=== PATIENT | female | born 1990 | race Caucasian/White ===

== ENCOUNTER 2020-09-13 15:03 | Outpatient (CLI) | payer OTHER, SELFPAY | END 2020-09-13 15:04 | disposition home or self-care (01) | LOC: ANHCOVIDVC 15:03 | PROVIDERS: PCP Internal Medicine | DX: Z23 Encounter for immunization (principal) | CPT/HCPCS: 0001A; 91300 ==

== ENCOUNTER 2020-10-04 14:58 | Outpatient (CLI) | payer OTHER, SELFPAY | END 2020-10-04 14:59 | disposition home or self-care (01) | LOC: ANHCOVIDVC 14:58 | PROVIDERS: PCP Internal Medicine | DX: Z23 Encounter for immunization (principal) | CPT/HCPCS: 0002A; 91300 ==

== ENCOUNTER 2022-08-09 08:33 | Outpatient (CLI) | payer OTHER, SELFPAY ==
[2022-08-09 09:38] LABS: Basophils Percent Auto 0.5 % (0.2-1.2); Eosinophils Absolute Auto 0.1 K/mm3 (0-0.3); Eosinophils Percent Auto 1.4 % (0-4.4); Hematocrit 36.9 % (37.0-47.0); Immature Granulocyte Absolute 0.02 K/mm3 (0.00-0.031); Immature Granulocyte Percent A 0.3 % (0-0.5); Lymphocytes Absolute Auto 1.52 K/mm3 (0.9-3.2); Lymphocytes Percent Auto 23.7 % (18.3-44.2); Mean Corpuscular HGB Conc 35.2 g/dl (32-36); Mean Corpuscular Volume 90.9 fl (80-100); Mean Platelet Volume 8.8 fl (7.4-10.4); Monocytes Absolute Auto 0.5 K/mm3 (0.1-0.6); Monocytes Percent Auto 7.3 % (2.6-8.5); Neutrophils Absolute Auto 4.3 K/mm3 (1.3-6.7); Neutrophils Percent Auto 66.8 % (45.5-73.1); Platelet Count Result 277 k/mm3 (150-375); Red Blood Count 4.06 M/mm3 (4.2-5.4); White Blood Count 6.4 K/mm3 (4.5-10.0)
[2022-08-09 10:23] LABS: Hepatitis B Surface Antigen Negative (Negative); Rubella IgG Antibody 18.7 IU/ML
[2022-08-09 10:29] LABS: HIV 1/2 Ab P24 Ag Result Negative (Negative)
[2022-08-12 05:56] LABS: Rapid Plasma Reagin Non-Reactive (NonReactive)
[2022-08-13 11:32] LABS: Varicella IgG Antibody >4000.00 Index (>=165.00)
[2022-08-14 16:03] LABS: CMV IgG Antibody <0.60 U/mL (<0.60)
== END 2022-08-09 08:34 | disposition home or self-care (01) ==
LOC: ANHLAB 08:36
PROVIDERS: PCP Internal Medicine; Visit Provider Obstetrics & Gynecology
DX: N94.89 Other specified conditions associated with female genital organs and menstrual cycle (principal)
CPT/HCPCS: 36415; 85025; 86592; 86644; 86703; 86747; 86762; 86787; 86850; 86880; 86900; 86901; 86902; 87086; 87340; G0432

== ENCOUNTER 2022-12-04 06:59 | Outpatient (RCR) | payer OTHER, SELFPAY ==
[2022-12-04 08:50] LABS: Basophils Percent Auto 0.3 % (0.2-1.2); Eosinophils Absolute Auto 0.1 K/mm3 (0-0.3); Eosinophils Percent Auto 1.4 % (0-4.4); Hematocrit 37.8 % (37.0-47.0); Hemoglobin 12.8 g/dL (12.0-15.0); Immature Granulocyte Absolute 0.05 K/mm3 (0.00-0.031); Immature Granulocyte Percent A 0.7 % (0-0.5); Lymphocytes Absolute Auto 1.28 K/mm3 (0.9-3.2); Lymphocytes Percent Auto 17.3 % (18.3-44.2); Mean Corpuscular HGB Conc 33.9 g/dl (32-36); Mean Corpuscular Hemoglobin 32.5 pg (26-34); Mean Corpuscular Volume 95.9 fl (80-100); Mean Platelet Volume 9.1 fl (7.4-10.4); Monocytes Absolute Auto 0.5 K/mm3 (0.1-0.6); Monocytes Percent Auto 6.8 % (2.6-8.5); Neutrophils Absolute Auto 5.4 K/mm3 (1.3-6.7); Neutrophils Percent Auto 73.5 % (45.5-73.1); Platelet Count Result 254 k/mm3 (150-375); Red Blood Count 3.94 M/mm3 (4.2-5.4); Red Cell Distribution Width 12.6 % (11.5-14.5); White Blood Count 7.4 K/mm3 (4.5-10.0)
[2022-12-04 09:00] LABS: Glucose 1 Hour PP 50gm Dose 91 mg/dL
[2022-12-04 09:40] LABS: HIV 1/2 Ab P24 Ag Result Negative (Negative)
[2022-12-04] MEDS: RHO(D) IMMUNE GLOBULIN 300 MCG/2 ML SYRINGE IM (16:47)
== END 2023-03-04 23:59 | disposition home or self-care (01) ==
LOC: ANHLAB 06:59
PROVIDERS: Visit Provider Obstetrics & Gynecology
DX: Z11.4 Encounter for screening for human immunodeficiency virus [HIV] (principal); Z29.13 Encounter for prophylactic Rho(D) immune globulin; O36.0190 Maternal care for anti-D [Rh] antibodies, unspecified trimester, not applicable or unspecified; Z3A.00 Weeks of gestation of pregnancy not specified
CPT/HCPCS: 36415; 82947; 85025; 85461; 86703; 86850; 86900; 86901; 90384; 96372; G0432; J2790

== ENCOUNTER 2022-12-30 09:15 | Outpatient (RCR) | payer OTHER, SELFPAY ==
[2022-12-30] VITALS (8 sets, daily range): BP systolic 99; BP diastolic 66; PULSE 69–89; O2SAT 97–99
== END 2023-02-24 12:46 | disposition home or self-care (01) ==
LOC: ANHOBOP 09:15
PROVIDERS: Visit Provider Obstetrics & Gynecology
DX: O36.8130 Decreased fetal movements, third trimester, not applicable or unspecified (principal); Z3A.31 31 weeks gestation of pregnancy
CPT/HCPCS: 59025

== ENCOUNTER 2023-02-18 01:13 | Inpatient (IN) | payer OTHER, SELFPAY ==
[2023-02-18] VITALS (65 sets, daily range): BP systolic 93–138; BP diastolic 50–102; PULSE 69–124; RESP 16; TEMP 36.4–37.3; O2SAT 96–100; BMI 27.3
--- NOTE | 2023-02-18 01:29 | LDADM ---
This patient, Cassie Price, was admitted to Labor/Delivery/Recovery 106 on 02/18/23 at 01:13. Plans for labor, pain management and were discussed with patient. Patient/family oriented to hospital policies and general routines including ID bracelet, bed and alarms, visiting hours, pain management, procedures, bathroom and other care routines, personal items, smoking policy, room service/diet and guest tray routines, security routines, and visiting hours. Patient/Family are encouraged to report perceived risks to care and to ask questions if they do not understand what they are told or what they should do. See OBIX for further documentation.
[2023-02-18] MEDS: fentaNYL CITRATE INJ (*CRX) 100 MCG/2 ML VIAL 50 MCG IV PUSH (01:54)
[2023-02-18 01:59] LABS: Basophils Percent Auto 0.3 % (0.2-1.2); Eosinophils Absolute Auto 0.1 K/mm3 (0-0.3); Eosinophils Percent Auto 1.2 % (0-4.4); Hematocrit 38.6 % (37.0-47.0); Hemoglobin 13.4 g/dL (12.0-15.0); Immature Granulocyte Absolute 0.07 K/mm3 (0.00-0.031); Immature Granulocyte Percent A 0.6 % (0-0.5); Lymphocytes Absolute Auto 2.38 K/mm3 (0.9-3.2); Mean Corpuscular HGB Conc 34.7 g/dl (32-36); Mean Corpuscular Hemoglobin 32.4 pg (26-34); Mean Corpuscular Volume 93.2 fl (80-100); Mean Platelet Volume 9.9 fl (7.4-10.4); Monocytes Percent Auto 8.7 % (2.6-8.5); Neutrophils Absolute Auto 8.2 K/mm3 (1.3-6.7); Neutrophils Percent Auto 69.2 % (45.5-73.1); Platelet Count Result 290 k/mm3 (150-375); Red Blood Count 4.14 M/mm3 (4.2-5.4); Red Cell Distribution Width 12.7 % (11.5-14.5); White Blood Count 11.9 K/mm3 (4.5-10.0)
[2023-02-18] MEDS: LACTATED RINGERS 1,000 ML 125 ML IV CONT ×3 (02:01→03:57)
--- NOTE | 2023-02-18 02:09 | WPDANESEPP ---
Anes - Eval Pre Procedure Procedure: Labor epidural Date/Time: 02/18/23 02:09 Surgeon: Lauro Preop Diagnosis: Abdominal pain with contractions Pre Op Diagnosis: Contractions Patient Data Age: 32 Gender: F Height: 1.75 m Weight: 84 kg Last Vital Signs Pulse 76 02/18/23 02:01 BP 127/75 02/18/23 02:01 O2 Del Method Room Air 02/18/23 01:29 Allergies Allergy/AdvReac Type Severity Reaction Status Date / Time No Known Allergies Allergy Verified 02/18/23 01:35 Home Medications Medication Instructions Recorded Confirmed Type prenat.vits,john,ajo-iixu-lgwfd 1 tablet PO DAILY 09/12/22 02/18/23 History Laboratory Tests 02/18/23 01:44 WBC 11.9 H K/mm3 (4.5-10.0) RBC 4.14 L M/mm3 (4.2-5.4) Hgb 13.4 g/dL (12.0-15.0) Hct 38.6 % (37.0-47.0) MCV 93.2 fl (80-100) MCH 32.4 pg (26-34) MCHC 34.7 g/dl (32-36) RDW 12.7 % (11.5-14.5) Plt Count 290 k/mm3 (150-375) MPV 9.9 fl (7.4-10.4) Immature Gran % (Auto) 0.6 H % (0-0.5) Neut % (Auto) 69.2 % (45.5-73.1) Lymph % (Auto) 20.0 % (18.3-44.2) [facility] % (Auto) 8.7 H % (2.6-8.5) Eos % (Auto) 1.2 % (0-4.4) Baso % (Auto) 0.3 % (0.2-1.2) Lymph # (Auto) 2.38 K/mm3 (0.9-3.2) [facility] # (Auto) 1.0 H K/mm3 (0.1-0.6) Eos # (Auto) 0.1 K/mm3 (0-0.3) Baso # (Auto) 0.0 K/mm3 (0.0-0.1) Abs Immat Gran (auto) 0.07 H K/mm3 (0.00-0.031) Absolute Neuts (auto) 8.2 H K/mm3 (1.3-6.7) Absolute Nucleated RBC 0.0 K/mm3 (0.0-0.012) Nucleated RBC % 0.0 % (0.0-0.2) RPR Pending : gestational age HCG: positive Patient hx anesthesia problems: none Family hx anesthesia problems: none Results Review: All pre-operative results and documents have been reviewed as part of the pre-operative evaluation. [facility] Past Medical History Medical History Abnormal Pap smear of cervix 06/04/17 ascus (+) hpv Anxiety Chlamydia (~2016) Encounter for IUD insertion 11/03/12 Mirena insertion 11/05/17 Mirena insertion Encounter for IUD removal 10/27/17 Mirena removal Encounter for IUD removal Femoral hernia of left side 02/26/11 lt superficial groin dissection, repair of acquired lt femoral hernia, transposition of satorius muscle Melanoma in situ stage IIIB--left buttock Suppression of menstruation Surgical History Surgical History History of colposcopy with cervical biopsy (06/27/17) History of gynecological procedure (~10/29/21) mirena iud removal History of melanoma excision 02/07/11 wide excision left buttock sentinel node dissection/biopsy Family History Family History Grandparent Hypertension maternal grandmother Osteoporosis maternal grandmother Alcohol abuse maternal grandmother Social History Social History Smoking status: Never smoker Alcohol intake: former Drinks per week: 2 Alcohol use details: social Substance use: never Substance use type: does not use Lack of Transportation: No Lack of Food: Never True Current Housing: I Have Housing Concerned About Future Housing: No Difficulty Paying Gas/Electric Bills: No Difficulty Paying for Meds: No Currently Unemployed: No Education: Bachelor's Degree Difficulty w/ Childcare or Family Care: No Living arrangements: other Additional living arrangements comments: Occupation/Education: occupation Additional occupation/education comments: Loan admin Gender identity (if verbalized by the patient): Female Sexual Orientation (if Verbalized by the Patient): Straight or Heterosexual Spiritual care concerns: No Exam Day of Procedure 02/18/23 02:09 Patient weight: overweight Hea
[2023-02-18] MEDS: OXYTOCIN 30 UNITS/NS 500 ML 30 UNITS/500 ML BAG 125 UNITS IV CONT (10:30)
--- NOTE | 2023-02-18 11:02 | WPDHPUPDATE1 ---
History and Physical Update Update Date/Time: 02/18/23 11:02 History and Physical has been reviewed, including an updated exam of the patient. There are NO changes in the patient's condition. Risks, benefits, and alternatives have been discussed and questions answered. Patient agrees to proceed with procedure.
--- NOTE | 2023-02-18 11:02 | WPDOBADMIT ---
Obstetrics - Admit Note Admission Note: record reviewed. No pertinent additions to the history and/or any subsequent changes in the physical findings that are not consistent with the expected course of the were found. Additions to the history and/or subsequent changes in the physical findings follow. None.
--- NOTE | 2023-02-18 11:02 | PM.OBPRVD ---
OB - Delivery Note Procedure Delivery monitor: External FHT and External Uterine Route of delivery: Laceration Description: Perineal - 2nd Degree and Vaginal Delivery repair: chromic Specimen: No Quantitative Blood Loss (ml): 500 Anesthesia type: Epidural Disposition: Floor Complications: None Narrative: patient prepped and draped in usual manner for this procedure. Maternal expulsive efforts readily delivered vertex over intact perineum. Rest of baby was delivered without difficulty, cord was clamped cut, and placenta delivered spontaneously. Uterus was well contracted with minimal bleeding. Second-degree laceration was noted with bilateral sulcus tears. Repair was undertaken by 1st repairing the tears into the sulcus area with 2-0 chromic in a running interlocking manner with hemostasis noted and good approximation of tissue. Once this was done bilaterally the vaginal tissue was then approximated again using 2-0 chromic in a running interlocking manner to the perineum, deep tissue was approximated, and subcuticular manner to approximate the perineal tissue. Immediate postop condition mother baby with excellent, and there was no significant bleeding from the well contracted uterus. [place] Baby Weeks of gestation at delivery: 39 Infant gender: Female presentation: vertex position: Right Occiput Anterior Placenta delivery description: Spontaneous Cord Vessel Description: 3 Vessels [facility] Delivery Billing Delivery Delivery: Delivery Charge
[2023-02-18 13:48] LABS: Rapid Plasma Reagin Non-Reactive (NonReactive)
--- NOTE | 2023-02-18 14:40 | PC.NURSE ---
Patient transferred to post room #282 via 1440. Support person present. Oriented to unit, room, information board, rooming in, admission packet and security measures. Patient verbalizes understanding.
[2023-02-18] MEDS: IBUPROFEN 600 MG TABLET PO (15:07)
[2023-02-19 04:15] VITALS: BP 100/63; PULSE 80; RESP 18; TEMP 37.2; O2SAT 99
[2023-02-19 05:34] LABS: Hematocrit 30.5 % (37.0-47.0); Hemoglobin 10.4 g/dL (12.0-15.0)
--- NOTE | 2023-02-19 07:10 | PC.NURSE ---
PT introductions made and plan of care discussed per post , pain management, breast feeding, daily care activities. PT and fob both recipients of such instructions and no barriers to learning identified at this time. PT received such instructions per one to one discussion, mom baby care guide and demonstrations this shift. PT verbalized understanding of such care.
[2023-02-19 08:15] VITALS: BP 107/71; PULSE 81; RESP 16; TEMP 37.7; O2SAT 98
[2023-02-19] MEDS: DOCUSATE SODIUM 100 MG CAPSULE PO ×2 (08:57→17:01)
[2023-02-19] MEDS: MULTIVIT/MIN/PREN/FOL AC/IRON TABLET 1 TAB PO (08:57)
[2023-02-19] MEDS: IBUPROFEN 600 MG TABLET PO ×3 (08:57→23:55)
[2023-02-19] MEDS: LANOLIN (LANSINOH) 7.5 GM CREAM 1 APPLIC TOPICAL (08:59)
[2023-02-19 09:00] VITALS: PULSE 81; RESP 16; O2SAT 98
[2023-02-19] MEDS: ACETAMINOPHEN 325 MG TABLET 650 MG PO ×3 (11:39→23:55)
--- NOTE | 2023-02-19 11:59 | WPDANLDPN2 ---
Anes-Prog Note L&D Date/Time: 02/19/23 11:59 Neuraxial method: epidural Epidural/Spinal procedure site: clean & non-tender Neuro status: Neuro function grossly intact. Cardiovascular status: normal Respiratory status: normal Airway patency: baseline Mental status: baseline Post-Op hydration status: normal Vital Signs: Last Vital Signs Temp 99.8 F H 02/19/23 08:15 Pulse 81 02/19/23 09:00 Resp 16 02/19/23 09:00 BP 107/71 02/19/23 08:15 Pulse Ox 98 02/19/23 09:00 O2 Del Method Room Air 02/19/23 09:00 Pain score (VAS): 0 I/O: Intake & Output 02/18/23 02/19/23 02/19/23 23:59 07:59 15:59 Intake Total 480 240 Balance 480 240 Post-procedural complaints: none Patient feedback: Patient satisfied with anesthetic care.
--- NOTE | 2023-02-19 14:22 | PC.NURSE ---
[id number] Purposefully rounded to assess for needs. Mother verbalizes she is able to independently latch with appropriate positioning/alignment. She denies any nipple discomfort and is responsively . Infant is currently meeting outcomes for weight, output, jaundice and feeding frequencies of 8-12 times in 24 hours. Mother declines any additional assistance/education at this time. Mother is encouraged to call for assistance if her infant doesn?t latch or there is discomfort with latching. Mother voiced understanding of information shared and the mom reminded of the mom/baby guide for an additional resource. Reported to the primary RN.
[2023-02-19 20:40] VITALS: BP 105/69; PULSE 73; RESP 20; TEMP 37.7; O2SAT 100
--- NOTE | 2023-02-20 07:25 | PM.OBDSVD ---
DS: Admitting Diagnosis Discharge Date 02/20/2023 Admitting Diagnosis DS: Discharge Diagnosis Discharge Diagnosis (1) , delivered: Code(s): O80 - Encounter for full-term uncomplicated delivery Status: Acute OB - DS: Summary OB Procedures : None OB Procedures Intrapartum: Spontaneous Vag Delivery OB Procedures: : None Time Spent with Patient Time attestation: Total time spent providing and/or coordinating discharge services: Discharge Plan Discharge Discharging Clinician: Gerard Restrepo Patient Disposition: Home, Self-Care Activity: as tolerated Diet: as tolerated Discharge Instructions: Education: Mom and Baby Guide Given to: Mother Follow-Up: Call your delivering provider's office for an appointment to be seen in: 4 Weeks [facility]. Appointment Date/Time: February 21, 2023 at 10:00 am What to expect at your follow-up visit: Blood Pressure Check Call [phone] if you are unable to keep your appointment time. BREAST CARE: * Wear a snug supportive bra. * For engorgement discomfort: Breast Feeding: * Apply warm moist washcloths * Express milk as needed to relieve engorgement * Wear loose clothing * For sore nipples: * Identify correct latch-on * Apply warm moist washcloths before and after nursing * Air dry nipples after nursing * May apply Lansinoh cream to nipples /PERINEAL CARE: * Until bleeding stops, use your eder bottle after urinating * Change your pad frequently throughout the day * You may take sitz baths several times a day (fill your bathtub with warm water and soak for 20 minutes.) Do NOT bathe in the water * No tub baths until seen by your physician - You may shower ACTIVITY: * Rest as much as possible. * Do not exercise or lift anything heavier than your baby (such as laundry or other children.) * Avoid stairs or driving as much as possible. * Do not put anything into the vagina. No douching, tampons, or sexual activity until seen by physician. NOTIFY PHYSICIAN IF YOU HAVE ANY QUESTIONS OR IF ANY OF THE FOLLOWING SYMPTOMS OCCUR: * If your perineum becomes red, swollen, or more painful than what you have experienced in the hospital. * If your vaginal bleeding becomes foul smelling. * If your vaginal bleeding becomes more heavy than a period or if your bleeding changes from pink to bright red. However, you may pass an occasional walnut-sized clot once or twice for the first week . * If you experience a sharp, shooting pain in you calves. * If you discover a hard, reddened area on your breast or if you experience flu-like symptoms. * If you have a fever of 100.4 or greater DIET: * Eat regular, well-balanced meals. * Drink plenty of fluids daily. If , drink to thirst. Patient Instructions: Antibiotic Form Stand Alone Forms: General Discharge Information Follow-up/Referrals: Gerard Restrepo MD [Physician] - 3 Weeks Discharge Medications: New ibuprofen 600 mg Tablet 600 mg PO Q6H PRN (Reason: Cramping) Qty: 30 0RF Continued prenat.vits,john,iuu-gaka-cpfxm Tablet 1 tablet PO DAILY Date of admission: 02/18/23 01:13 Primary Care Provider: PHYSICIAN,WIRE BENDER Admitting Provider: Gerard Restrepo Attending physician on admission: Gerard Restrepo Condition: Stable
[2023-02-20 08:00] VITALS: PULSE 74; RESP 16; O2SAT 99
--- NOTE | 2023-02-20 08:00 | PC.NURSE ---
PT introductions made and plan of care discussed per post , pain management, breast feeding, daily care activities and pending discharge to home. PT and fob both recipients of such instructions and no barriers to learning identified at this time. PT received such instructions per one to one discussion, mom baby care guide and demonstrations this shift. PT verbalized understanding of such care.
[2023-02-20] MEDS: IBUPROFEN 600 MG TABLET PO (08:07)
[2023-02-20] MEDS: ACETAMINOPHEN 325 MG TABLET 650 MG PO (08:08)
[2023-02-20] MEDS: MULTIVIT/MIN/PREN/FOL AC/IRON TABLET 1 TAB PO (08:08)
[2023-02-20] MEDS: DOCUSATE SODIUM 100 MG CAPSULE PO (08:08)
[2023-02-20 08:45] VITALS: BP 114/74; PULSE 74; RESP 16; TEMP 36.9; O2SAT 99
--- NOTE | 2023-02-20 13:15 | PC.NURSE ---
PT received discharge instructions per protocol and verbalized understanding of such care.
--- NOTE | 2023-02-20 13:40 | PC.NURSE ---
PT discharged to home ambulatory accompanied by spouse and and taken to waiting car. Follow up appts confirmed
[2023-02-21 10:36] VITALS: BP 120/85; PULSE 85; RESP 18; TEMP 37.1; O2SAT 100
== END 2023-02-20 13:40 | disposition home or self-care (01) | DRG 807 ==
LOC: ANHLDR 01:26 → ANHOB2 14:45
PROVIDERS: Admitting Provider Obstetrics & Gynecology; Visit Provider Obstetrics & Gynecology
DX: O70.1 Second degree perineal laceration during delivery (principal); Z37.0 Single live birth; Z3A.39 39 weeks gestation of pregnancy
CPT/HCPCS: 36415; 85014; 85018; 85025; 86592; 86850; 86880; 86900; 86901; 86902; A9270; J2590; J2795; J3010; J7120

== ENCOUNTER 2023-10-23 06:56 | Outpatient (CLI) | payer OTHER, SELFPAY ==
[2023-10-23 07:31] LABS: Basophils Percent Auto 0.3 % (0.2-1.2); Eosinophils Absolute Auto 0.1 K/mm3 (0-0.3); Eosinophils Percent Auto 1.5 % (0-4.4); Hematocrit 39.8 % (37.0-47.0); Hemoglobin 13.3 g/dL (12.0-15.0); Immature Granulocyte Absolute 0.02 K/mm3 (0.00-0.031); Immature Granulocyte Percent A 0.3 % (0-0.5); Lymphocytes Absolute Auto 1.51 K/mm3 (0.9-3.2); Lymphocytes Percent Auto 21.9 % (18.3-44.2); Mean Corpuscular HGB Conc 33.4 g/dl (32-36); Mean Corpuscular Volume 92.8 fl (80-100); Monocytes Absolute Auto 0.4 K/mm3 (0.1-0.6); Monocytes Percent Auto 6.2 % (2.6-8.5); Neutrophils Absolute Auto 4.8 K/mm3 (1.3-6.7); Neutrophils Percent Auto 69.8 % (45.5-73.1); Platelet Count Result 291 k/mm3 (150-375); Red Blood Count 4.29 M/mm3 (4.2-5.4); Red Cell Distribution Width 12.7 % (11.5-14.5); White Blood Count 6.9 K/mm3 (4.5-10.0)
[2023-10-23 08:39] LABS: Hepatitis B Surface Antigen Negative (Negative); Rubella IgG Antibody 19.3 IU/ML
[2023-10-23 08:40] LABS: HIV 1/2 Ab P24 Ag Result Negative (Negative)
[2023-10-23 09:02] LABS: Rapid Plasma Reagin Non-Reactive (NonReactive)
[2023-10-29 09:52] LABS: Varicella IgG Antibody >4000.00 index
[2023-10-29 14:49] LABS: CMV IgG Antibody <0.60 U/mL
== END 2023-10-23 06:57 | disposition home or self-care (01) ==
LOC: ANHLAB 06:57
PROVIDERS: Visit Provider Student in an Organized Health Care Education/Training Program
DX: N91.2 Amenorrhea, unspecified (principal)
CPT/HCPCS: 36415; 84702; 85025; 86592; 86644; 86703; 86747; 86762; 86787; 86850; 86900; 86901; 87086; 87088; 87340; G0432

== ENCOUNTER 2024-03-18 07:56 | Outpatient (CLI) | payer OTHER, SELFPAY ==
[2024-03-18 09:49] LABS: Basophils Percent Auto 0.3 % (0.2-1.2); Eosinophils Absolute Auto 0.1 K/mm3 (0-0.3); Eosinophils Percent Auto 1.5 % (0-4.4); Hematocrit 37.4 % (37.0-47.0); Hemoglobin 12.5 g/dL (12.0-15.0); Immature Granulocyte Absolute 0.07 K/mm3 (0.00-0.031); Immature Granulocyte Percent A 0.8 % (0-0.5); Lymphocytes Absolute Auto 1.23 K/mm3 (0.9-3.2); Lymphocytes Percent Auto 14.3 % (18.3-44.2); Mean Corpuscular HGB Conc 33.4 g/dl (32-36); Mean Corpuscular Hemoglobin 32.6 pg (26-34); Mean Corpuscular Volume 97.7 fl (80-100); Mean Platelet Volume 9.5 fl (7.4-10.4); Monocytes Absolute Auto 0.4 K/mm3 (0.1-0.6); Monocytes Percent Auto 4.9 % (2.6-8.5); Neutrophils Absolute Auto 6.7 K/mm3 (1.3-6.7); Neutrophils Percent Auto 78.2 % (45.5-73.1); Platelet Count Result 231 k/mm3 (150-375); Red Blood Count 3.83 M/mm3 (4.2-5.4); Red Cell Distribution Width 12.7 % (11.5-14.5); White Blood Count 8.6 K/mm3 (4.5-10.0)
[2024-03-18 09:58] LABS: Glucose 1 Hour PP 50gm Dose 111 mg/dL
[2024-03-18 10:36] LABS: HIV 1/2 Ab P24 Ag Result Negative (Negative)
[2024-03-19 12:40] LABS: Rapid Plasma Reagin Non-Reactive (NonReactive)
== END 2024-03-18 07:57 | disposition home or self-care (01) ==
LOC: ANHLAB 08:03
PROVIDERS: Visit Provider Obstetrics & Gynecology
DX: Z34.90 Encounter for supervision of normal pregnancy, unspecified, unspecified trimester (principal)
CPT/HCPCS: 36415; 82947; 85025; 86592; 86703; G0432

== ENCOUNTER 2024-03-30 07:44 | Outpatient (RCR) | payer OTHER, SELFPAY ==
[2024-03-30] MEDS: RHO(D) IMMUNE GLOBULIN 300 MCG/2 ML SYRINGE IM (15:42)
== END 2024-06-28 23:59 | disposition home or self-care (01) ==
LOC: ANHLAB 07:44
PROVIDERS: Visit Provider Obstetrics & Gynecology
DX: Z29.13 Encounter for prophylactic Rho(D) immune globulin (principal); O36.0190 Maternal care for anti-D [Rh] antibodies, unspecified trimester, not applicable or unspecified; Z3A.00 Weeks of gestation of pregnancy not specified
CPT/HCPCS: 36415; 85461; 86850; 86900; 86901; 90384; 96372; J2790

== ENCOUNTER 2024-05-24 03:00 | Inpatient (IN) | payer OTHER, SELFPAY ==
[2024-05-24] VITALS (71 sets, daily range): BP systolic 85–146; BP diastolic 57–95; PULSE 27–149; RESP 14–16; TEMP 36.3–36.8; O2SAT 87–100; BMI 27.3
[2024-05-24] MEDS: LACTATED RINGERS 1,000 ML 125 ML IV CONT (03:15)
[2024-05-24] MEDS: fentaNYL CITRATE INJ (*CRX) 100 MCG/2 ML VIAL 50 MCG IV PUSH (03:30)
[2024-05-24 03:32] LABS: Basophils Percent Auto 0.4 % (0.2-1.2); Eosinophils Absolute Auto 0.2 K/mm3 (0-0.3); Hemoglobin 12.1 g/dL (12.0-15.0); Immature Granulocyte Absolute 0.05 K/mm3 (0.00-0.031); Immature Granulocyte Percent A 0.5 % (0-0.5); Lymphocytes Absolute Auto 2.23 K/mm3 (0.9-3.2); Lymphocytes Percent Auto 23.1 % (18.3-44.2); Mean Corpuscular HGB Conc 34.6 g/dl (32-36); Mean Corpuscular Hemoglobin 32.1 pg (26-34); Mean Corpuscular Volume 92.8 fl (80-100); Mean Platelet Volume 9.9 fl (7.4-10.4); Monocytes Absolute Auto 0.8 K/mm3 (0.1-0.6); Monocytes Percent Auto 7.8 % (2.6-8.5); Neutrophils Absolute Auto 6.4 K/mm3 (1.3-6.7); Neutrophils Percent Auto 66.2 % (45.5-73.1); Platelet Count Result 249 k/mm3 (150-375); Red Blood Count 3.77 M/mm3 (4.2-5.4); Red Cell Distribution Width 12.8 % (11.5-14.5); White Blood Count 9.7 K/mm3 (4.5-10.0)
--- NOTE | 2024-05-24 03:40 | P.PNAN_ITS ---
Anes - Eval Pre Procedure Procedure: Labor epidural Date/Time: 05/24/24 03:40 Surgeon: Lauro Preop Diagnosis: Abdominal pain with contractions Pre Op Diagnosis: IOL Patient Data Age: 33 Gender: F Height: Weight: Last Vital Signs Pulse Ox 97 05/24/24 03:39 Allergies Allergy/AdvReac Type Severity Reaction Status Date / Time No Known Allergies Allergy Verified 05/17/24 08:34 Home Medications Medication Instructions Recorded Confirmed Type prenat.vits,john,mwm-kkmz-dxkbn 1 tablet PO DAILY 09/12/22 05/17/24 History Laboratory Tests 05/24/24 03:20 WBC 9.7 K/mm3 (4.5-10.0) RBC 3.77 L M/mm3 (4.2-5.4) Hgb 12.1 g/dL (12.0-15.0) Hct 35.0 L % (37.0-47.0) MCV 92.8 fl (80-100) MCH 32.1 pg (26-34) MCHC 34.6 g/dl (32-36) RDW 12.8 % (11.5-14.5) Plt Count 249 k/mm3 (150-375) MPV 9.9 fl (7.4-10.4) Immature Gran % (Auto) 0.5 % (0-0.5) Neut % (Auto) 66.2 % (45.5-73.1) Lymph % (Auto) 23.1 % (18.3-44.2) [place] % (Auto) 7.8 % (2.6-8.5) Eos % (Auto) 2.0 % (0-4.4) Baso % (Auto) 0.4 % (0.2-1.2) Lymph # (Auto) 2.23 K/mm3 (0.9-3.2) [place] # (Auto) 0.8 H K/mm3 (0.1-0.6) Eos # (Auto) 0.2 K/mm3 (0-0.3) Baso # (Auto) 0.0 K/mm3 (0.0-0.1) Abs Immat Gran (auto) 0.05 H K/mm3 (0.00-0.031) Absolute Neuts (auto) 6.4 K/mm3 (1.3-6.7) Absolute Nucleated RBC 0.000 K/mm3 (0.0-0.012) Nucleated RBC % 0.0 % (0.0-0.2) RPR Pending HIV 1&2 Ab/P24 Ag 4thGn Pending : gestational age HCG: positive Patient hx anesthesia problems: none Family hx anesthesia problems: none Results Review: All pre-operative results and documents have been reviewed as part of the pre- operative evaluation. [facility] Past Medical History Medical History Abnormal Pap smear of cervix 06/04/17 ascus (+) hpv Anxiety Chlamydia (~2016) Encounter for IUD insertion 11/03/12 Mirena insertion 11/05/17 Mirena insertion Encounter for IUD removal 10/27/17 Mirena removal Encounter for IUD removal Femoral hernia of left side 02/26/11 lt superficial groin dissection, repair of acquired lt femoral hernia, transposition of satorius muscle Melanoma in situ stage IIIB--left buttock Suppression of menstruation Vaginal delivery 02/18/23 Surgical History Surgical History History of colposcopy with cervical biopsy (06/27/17) History of gynecological procedure (~10/29/21) mirena iud removal History of melanoma excision 02/07/11 wide excision left buttock sentinel node dissection/biopsy Family History Family History Grandparent Hypertension maternal grandmother Osteoporosis maternal grandmother Alcohol abuse maternal grandmother Social History Social History Smoking status: Never smoker Second hand tobacco smoke exposure: No Alcohol intake: former Drinks per week: 2 Alcohol use details: social Substance use: never Substance use type: does not use Do You Feel Safe in your Home?: Yes Lack of Transportation: No Lack of Food: Never True Current Housing: I Have Housing Concerned About Future Housing: No Difficulty Paying Gas/Electric Bills: No Difficulty Paying for Meds: No Currently Unemployed: No Education: Bachelor's Degree Difficulty w/ Childcare or Family Care: No Living arrangements: with family Additional living arrangements comments: Occupation/Education: occupation Additional occupation/education comments: Loan admin Gender identity (if verbalized by the patient): Female Sexual Orientation (if Verbalized by the Patient): Straight or Heterosexual Spiritual care concerns: No Exam Day of Procedure 05/24/24 03:40 Patient weight: overweight Heart: regular rate and rhythm Lungs: clear to auscultation Airway: Mallampati scale class II Neurological: alert and oriented
[2024-05-24 04:05] LABS: Rapid Plasma Reagin Non-Reactive (NonReactive)
--- NOTE | 2024-05-24 04:18 | LDADM ---
This patient, Cassie Price, was admitted to Labor/Delivery/Recovery 105 on 05/24/24 at 03:00. Plans for labor, pain management and were discussed with patient. Patient/family oriented to hospital policies and general routines including ID bracelet, bed and alarms, visiting hours, pain management, procedures, bathroom and other care routines, personal items, smoking policy, room service/diet and guest tray routines, security routines, and visiting hours. Patient/Family are encouraged to report perceived risks to care and to ask questions if they do not understand what they are told or what they should do. See OBIX for further documentation.
[2024-05-24 04:24] LABS: HIV 1/2 Ab P24 Ag Result Negative (Negative)
[2024-05-24] MEDS: OXYTOCIN 30 UNITS/NS 500 ML 30 UNITS/500 ML BAG 999 UNITS IV CONT (06:01)
--- NOTE | 2024-05-24 06:29 | WPDHPUPDATE1 ---
History and Physical Update Update Date/Time: 05/24/24 06:29 History and Physical has been reviewed, including an updated exam of the patient. There are NO changes in the patient's condition. Risks, benefits, and alternatives have been discussed and questions answered. Patient agrees to proceed with procedure.
--- NOTE | 2024-05-24 06:29 | PM.OBPRVD ---
OB - Vaginal Delivery Note Procedure Delivery date: 05/24/24 Delivery monitor: External FHT and External Uterine Route of delivery: Episiotomy description: None Laceration Description: Perineal - 2nd Degree Delivery repair: chromic Specimen: No Quantitative Blood Loss (ml): 300 Anesthesia type: Epidural Disposition: Floor Complications: No immediate complications Narrative: Patient prepped and draped in usual manner for this procedure. Maternal expulsive efforts readily delivered vertex over intact perineum. Nuchal cord was noted and reduced. Rest of baby was delivered without difficulty, cord was clamped and cut, placenta delivered spontaneously. Uterus was well contracted. Cervix vagina vulva were inspected with second-degree laceration noted. This was approximated using 2-0 chromic running interlocking manner to approximate the vaginal tissue, deep tissue was also approximated and a subcuticular layer to approximate the perineum. At this point the procedure was considered terminated with immediate postoperative condition of mother baby were both excellent. [place] Baby Gestational Age by Date: 39 Infant gender: Male presentation: vertex position: Right Occiput Anterior Placenta delivery description: Spontaneous Cord Vessel Description: 3 Vessels, Nuchal Cord and Reduced
[2024-05-24] MEDS: OXYTOCIN 30 UNITS/NS 500 ML 30 UNITS/500 ML BAG 125 UNITS IV CONT (06:44)
[2024-05-24] MEDS: WITCH HAZEL 40 PADS 1 PAD TOPICAL (08:33)
[2024-05-24] MEDS: BENZOCAINE 20% AER SPR (*SP) 56 GM CAN 1 SPRAY TOPICAL (08:33)
[2024-05-24] MEDS: IBUPROFEN 600 MG TABLET PO ×2 (09:47→19:26)
[2024-05-24] MEDS: MULTIVIT/MIN/PREN/FOL AC/IRON TABLET 1 TAB PO (09:47)
[2024-05-24] MEDS: DOCUSATE SODIUM 100 MG CAPSULE PO ×2 (09:47→16:14)
--- NOTE | 2024-05-24 13:25 | OBPPTRN ---
Patient transferred to post room #282 via ( wheelchair). Support person present. Oriented to unit, room, information board, rooming in, admission packet and security measures. Patient verbalizes understanding.
[2024-05-24] MEDS: ACETAMINOPHEN 325 MG TABLET 650 MG PO (16:14)
--- NOTE | 2024-05-24 16:42 | PC.NURSE ---
1640. Met with patient to assess and discuss needs related to feeding. Mother states it is her intention to exclusively breastfeed, she reports she BF her older 2 children. Encouraged mother to breastfeed infant 10-12 times in 24 hours (approximately every 2-3 hours), watching for early feeding cues. If is sleepy, unwrap and place baby skin to skin. Discussed signs that infant is effectively , i.e. sufficient voids and stools, jaundice within normal limits, <10% weight loss from . Mother educated on milk production, supply and demand, and expectations for in the immediate period. Encouraged feeding on demand and feeding durations of 15 minutes or greater. Discussed breast/nipple care with good hand hygiene, signs of a correct latch, listening for swallows and documenting feedings on the feeding sheet. Mother independently latched infant to the left breast in the correct alignment and positioning without complication or pain. Discussed storage milk guidelines with mother and provided DUTTON for her to take home. Mother instructed to call for assistance if will not feed every 3 hours, if there is discomfort with , or if mother has any other questions or concerns. resources provided including the Mom and Baby Guide and name/number on communication board. Mother verbalized understanding. Updated patient?s primary RN with education provided.?
[2024-05-25] MEDS: IBUPROFEN 600 MG TABLET PO ×3 (02:58→16:41)
[2024-05-25 04:06] VITALS: BP 117/80; PULSE 71; RESP 12; TEMP 36.5; O2SAT 97
[2024-05-25 04:42] LABS: Hematocrit 30.5 % (37.0-47.0); Hemoglobin 10.5 g/dL (12.0-15.0)
[2024-05-25 07:20] VITALS: BP 115/74; PULSE 73; RESP 16; TEMP 36.2; O2SAT 97
--- NOTE | 2024-05-25 07:27 | WPDANLDPN2 ---
Anes-Prog Note L&D Date/Time: 05/25/24 07:27 Comfortable throughout: labor and delivery Neuraxial method: epidural Epidural/Spinal procedure site: clean & non-tender Neuro status: Neuro function grossly intact. Cardiovascular status: normal Respiratory status: normal Airway patency: baseline Mental status: baseline Post-Op hydration status: normal Vital Signs: Last Vital Signs Temp 36.5 C 05/25/24 04:06 Pulse 71 05/25/24 04:06 Resp 12 05/25/24 04:06 BP 117/80 05/25/24 04:06 Pulse Ox 97 05/25/24 04:06 O2 Del Method Room Air 05/24/24 13:26 Pain score (VAS): 4-complains of headache and neck pain without light sensitivity with a decrease in pain when she is flat. I/O: Intake & Output 05/24/24 05/24/24 05/25/24 15:59 23:59 07:59 Output Total 300 Balance -300 Post-procedural complaints: none Patient feedback: Patient satisfied with anesthetic care.
--- NOTE | 2024-05-25 08:15 | PC.NURSE ---
Consulted with mother concerning needs and she shared her ability to independently latch infant optimally without pain. Mother is feeding appropriately for growth of and understands stimulating to eat if needed. Reinforced understanding of milk production, transition of milk, signs of adequate intake, transition of stool, prevention/relief of engorgement, plugged ducts, mastitis, responsive watching for feeding cues, the different methods of stimulating to breastfeed 1-3 hours after the start of the last feeding, community resources, and when to call a provider using the resource of the feeding sheet along with the mom and baby guide. Mother voiced understanding of the information shared, is confident to continue effectively , when to call for assistance, denies any additional assistance or education at this time. Reported to the Primary RN.
[2024-05-25] MEDS: ACETAMINOPHEN 325 MG TABLET 650 MG PO (08:31)
[2024-05-25] MEDS: DOCUSATE SODIUM 100 MG CAPSULE PO ×2 (08:31→16:41)
[2024-05-25] MEDS: MULTIVIT/MIN/PREN/FOL AC/IRON TABLET 1 TAB PO (08:31)
[2024-05-25] MEDS: ACETAMINOPHEN/BUTALBITAL/CAFFEINE 325-50-40 MG TABLET (FIORICET) 1 TAB PO ×3 (13:20→21:16)
--- NOTE | 2024-05-25 14:34 | PM.OBPNVD ---
OB - PN: Subj Subjective Date/time seen: 05/25/24 14:34 S: Diet and ambulation without issue. Does complain of upper neck and headache, resolves when lying flat. O:VSS Afebrile Abdomen: Positive bowel sounds soft fundus not tender Labs: Reviewed A: 1. day 1 status post vaginal delivery... no issues of significance 2. Headache... will add Fioricet for pain control, anesthesia to consider blood patch if continues/worsens P: 1. Routine care, otherwise as noted above. OB - PN: Obj Data Labs 05/25/24 04:20 Labs: Laboratory Results - last 24 hr 05/25/24 04:20 Hgb 10.5 L Hct 30.5 L OB - PN A/P Time Spent With Patient Time: Total time spent is greater than 50% in coordination of care (as documented) at patient's floor/unit and/or counseling patient:
--- NOTE | 2024-05-25 14:36 | WPDOBCIRC ---
OB [place] - Circumcision Consent: Potential risks, benefits, and alternatives have been discussed and questions answered. Family agrees to proceed with circumcision. Preoperative Diagnosis: Normal Foreskin. Postoperative Diagnosis: Normal Foreskin. Date of Circumcision: 05/25/24 Type of Circumcision: GOMCO with 1.3 Anesthesia: None Foreskin: The foreskin was examined and found to be grossly normal. Estimated Blood Loss: Minimal
[2024-05-25 20:00] VITALS: BP 109/71; PULSE 72; RESP 16; TEMP 36.8; O2SAT 98
[2024-05-26] MEDS: IBUPROFEN 600 MG TABLET PO ×3 (01:30→14:52)
[2024-05-26] MEDS: ACETAMINOPHEN/BUTALBITAL/CAFFEINE 325-50-40 MG TABLET (FIORICET) 1 TAB PO ×3 (01:30→13:35)
[2024-05-26 08:00] VITALS: BP 119/76; PULSE 84; RESP 16; TEMP 36.5; O2SAT 99
[2024-05-26] MEDS: DOCUSATE SODIUM 100 MG CAPSULE PO (08:39)
[2024-05-26] MEDS: MULTIVIT/MIN/PREN/FOL AC/IRON TABLET 1 TAB PO (08:40)
--- NOTE | 2024-05-26 08:57 | PM.OBPNVD ---
OB - PN: Subj Subjective Date/time seen: 05/26/24 08:57 No significant change from yesterday. Motrin and Fioricet have not helped neck or headache. Anesthesia to evaluate later today for potential blood patch, will be discharged after that evaluation. OB - PN: Obj Data Labs 05/25/24 04:20 OB - PN A/P Time Spent With Patient Time: Total time spent is greater than 50% in coordination of care (as documented) at patient's floor/unit and/or counseling patient:
--- NOTE | 2024-05-26 08:58 | P.DS_ITS ---
DS: Admitting Diagnosis Discharge Date 05/26/2024 Admitting Diagnosis DS: Discharge Diagnosis Discharge Diagnosis (1) , delivered: Code(s): O80 - Encounter for full-term uncomplicated delivery Status: Acute OB - DS: Summary OB Procedures : None OB Procedures Intrapartum: Spontaneous Vag Delivery OB Procedures: : None Peripartum Data Laceration Description: Perineal - 2nd Degree Episiotomy description: None Time Spent with Patient Time attestation: Total time spent providing and/or coordinating discharge services: Discharge Plan Discharge Discharging Clinician: Gerard Restrepo Patient Disposition: Home, Self-Care Activity: as tolerated Diet: as tolerated Discharge Instructions: FEEDING PLAN: Your baby is exclusively at discharge. Your baby needs to feed 8- 12 times every 24 hours. You may have to wake your baby to feed. Signs that your baby is effectively : * Yellow, seedy stools by day 5 * Healthy weight gain (back at weight by 2 weeks old) * Enough urine output (6 wets per day by day 6 of life) * 8 or more times every 24 hours * Mother able to hear swallowing when (?ka? sound) If infant is not meeting these guidelines, you may need to start supplementing. You can use pumped breastmilk or formula. IF BABY IS NOT SATISFIED OR NOT HAVING THE REQUIRED WET DIAPERS FOR THEIR DAYS OLD, YOU SHOULD INCREASE THE FREQUENCY AND SUPPLEMENTATION VOLUME. NOTIFY YOUR BABY?S DOCTOR IF YOUR BABY DOES NOT HAVE THE REQUIRED URINE OUTPUT. If infant is not effectively , you should pump after each or attempt. Pump each breast for 10-15 minutes. Pumping will help stimulate your breasts to produce milk. Follow the collection and storage sheet given to you in the Mom and Baby Guide. Remember to keep track of all feedings/elimination on the blue worksheet provided. Your baby should be supplemented with pumped breastmilk first. Formula may be used in addition to breastmilk if needed. You should supplement with: * At least 20-30 ml * It is ok to give more supplementation (breastmilk or formula) if seems unsatisfied or continues to show feeding cues after feeding. Continue supplementation until your baby has been evaluated by your global recruiter. Ways to increase your milk supply: * Increase frequency of or pumping * Lots of skin to skin, especially before or pumping * Pump in the morning, most moms have more milk then * Use warm washcloths and breast massage before pumping * Set your pump to the highest comfortable suction level, pumping should not hurt You may contact the Team at [phone] for questions and appointments. These discharge instructions have been explained to me and I have received a copy. Patient Instructions: Antibiotic Form Stand Alone Forms: General Discharge Information Follow-up/Referrals: Gerard Restrepo MD [Physician] - 3 Weeks Discharge Medications: New mslhgfoxuo-tfmjtxkxnjuvi-xxgk 50-325-40 mg Tablet 1 tablet PO Q4H PRN (Reason: Pain Rated 4-6) Qty: 20 0RF ibuprofen 600 mg Tablet 600 mg PO Q6H PRN (Reason: Cramping) Qty: 30 0RF Continued prenat.vits,john,gae-rnmf-jeovl Tablet 1 tablet PO DAILY Date of admission: 05/24/24 03:00 Primary Care Provider: PHYSICIAN,TEAM ASSEMBLY LINE MACHINE OPERATOR Admitting Provider: Gerard Restrepo Attending physician on admission: Gerard Restrepo Condition: Stable
--- NOTE | 2024-05-26 09:30 | PC.NURSE ---
Mother verbalizes she is able to independently latch with appropriate positioning and alignment. She denies any nipple discomfort and is responsively . Mother declines any additional assistance or education at this time. Mother is encouraged to call for assistance if her infant doesn?t latch, pain with latching, questions or concerns. Mother voiced understanding of information shared along with the mom/baby guide for an additional resource. Reported to the Primary RN.
--- NOTE | 2024-05-26 14:33 | PC.NURSE ---
0830 RN called anesthesia to request a consult for patient due to possible spinal headache. Informed anesthesia that patient complains that she was very uncomfortable and was requesting a blood patch before discharge home. Anesthesia explained that they would be busy all morning and no one would be able to see this patient until afternoon. 1433 RN called anesthesia again per patient request. Informed them that patient was in a lot of pain and is hoping for relief soon in order to go home today. Anesthesia replied Yeah that would be nice wouldn't it. I already talked to someone this morning, we are busy. Someone will be up when they can. and proceeded to hang up before this RN could respond.
[2024-05-26] MEDS: ACETAMINOPHEN 325 MG TABLET 650 MG PO (14:51)
--- NOTE | 2024-05-26 15:00 | WPDANESEPP ---
Anes - Eval Pre Procedure Procedure: Epidural blood patch Date/Time: 05/26/24 15:00 Preop Diagnosis: Post dural puncture headache Pre Op Diagnosis: IOL Patient Data Age: 33 Gender: F Height: 1.75 m Weight: 84 kg Last Vital Signs Temp 36.5 C 05/26/24 08:00 Pulse 84 05/26/24 08:00 Resp 16 05/26/24 08:00 BP 119/76 05/26/24 08:00 Pulse Ox 99 05/26/24 08:00 O2 Del Method Room Air 05/25/24 20:00 Allergies Allergy/AdvReac Type Severity Reaction Status Date / Time No Known Allergies Allergy Verified 05/17/24 08:34 Home Medications Medication Instructions Recorded Confirmed Type prenat.vits,john,lkr-oimp-zmvhh 1 tablet PO DAILY 09/12/22 05/17/24 History egtmuwwdmb-rkpnkszettxqz-iifwhfbm 1 tablet PO Q4H PRN Pain Rated 4-6 05/26/24 Rx 50 mg-325 mg-40 mg tablet #20 tabs ibuprofen 600 mg tablet 600 mg PO Q6H PRN Cramping #30 tabs 05/26/24 Rx : gestational age HCG: positive Patient hx anesthesia problems: none Family hx anesthesia problems: none Results Review: All pre-operative results and documents have been reviewed as part of the pre-operative evaluation. [facility] Past Medical History Medical History Abnormal Pap smear of cervix 06/04/17 ascus (+) hpv Anxiety Chlamydia (~2016) Encounter for IUD insertion 11/03/12 Mirena insertion 11/05/17 Mirena insertion Encounter for IUD removal 10/27/17 Mirena removal Encounter for IUD removal Femoral hernia of left side 02/26/11 lt superficial groin dissection, repair of acquired lt femoral hernia, transposition of satorius muscle Melanoma in situ stage IIIB--left buttock Suppression of menstruation Vaginal delivery 02/18/23 Surgical History Surgical History History of colposcopy with cervical biopsy (06/27/17) History of gynecological procedure (~10/29/21) mirena iud removal History of melanoma excision 7/28/11 wide excision left buttock sentinel node dissection/biopsy Family History Family History Grandparent Hypertension maternal grandmother Osteoporosis maternal grandmother Alcohol abuse maternal grandmother Social History Social History Smoking status: Never smoker Second hand tobacco smoke exposure: No Alcohol intake: former Drinks per week: 2 Alcohol use details: social Substance use: never Substance use type: does not use Do You Feel Safe in your Home?: Yes Lack of Transportation: No Lack of Food: Never True Current Housing: I Have Housing Concerned About Future Housing: No Difficulty Paying Gas/Electric Bills: No Difficulty Paying for Meds: No Currently Unemployed: No Education: Bachelor's Degree Difficulty w/ Childcare or Family Care: No Living arrangements: with family Additional living arrangements comments: Occupation/Education: occupation Additional occupation/education comments: Loan admin Gender identity (if verbalized by the patient): Female Sexual Orientation (if Verbalized by the Patient): Straight or Heterosexual Spiritual care concerns: No Exam Day of Procedure 05/26/24 15:00 Patient weight: normal Heart: regular rate and rhythm Lungs: clear to auscultation Airway: Mallampati scale class II Neurological: alert and oriented
--- NOTE | 2024-05-26 15:38 | WPDANESEBPP ---
Anes - Epidural Blood Patch PN Date/Time: 05/26/24 15:15 Consent: I have discussed with the patient/family/POA, the rationale of a lumbar epidural autologous blood patch for the treatment of post-dural puncture headache (spinal headache), including associated potential risks, benefits, complications and side effects. I have also discussed more conservative treatment options such as intravenous hydration, caffeine and non-prescription analgesics. The patient/family/POA, understand(s) and wish(es) to proceed with epidural autologous blood patch as treatment for the patient's post-dural puncture headache. Time-Out: A pre-procedural Time-Out was completed immediately before starting the procedure and confirmed: Patient Identification, Site, Procedure, Patient Position and the Availability of Requisite Equipment. Clinical Indications: patient reports a 6/10 headache that has persisted all night. she has positional symptoms that are worse when sitting or standing. she denies photosensitivity. she has neck stiffness. she has failed conservative treatments. Loss of resistance found at 5.5cm. a total of 12 ml of autologous blood was injected once the patient reported a sense of pressure and fullness in her back. she was laid down and instructed to remain laying down for at least 2 hours. Epidural Insertion Note Patient position: sitting Skin prep: chlorhexidine, sterile drape and other (sterile towels used to prepare autologous blood draw. blood drawn from 18 g IV in left wrist that was freshly placed by DESMOND. 20 ml drawn sterile with sterile gloves) Needle: 18 gauge Tuohy-Schliff Technique: loss of resistance Skin anesthesia: lidocaine 1% Observations: tolerated well Complications: none
[2024-05-27 09:31] VITALS: BP 116/71; PULSE 71; RESP 16; TEMP 36.7; O2SAT 99
== END 2024-05-26 18:20 | disposition home or self-care (01) | DRG 807 ==
LOC: ANHLDR 08:18 → ANHOB2 09:03
PROVIDERS: Admitting Provider Obstetrics & Gynecology; Visit Provider Obstetrics & Gynecology
DX: O62.3 Precipitate labor (principal); Z37.0 Single live birth; O70.1 Second degree perineal laceration during delivery; O69.81X0 Labor and delivery complicated by cord around neck, without compression, not applicable or unspecified; Z3A.39 39 weeks gestation of pregnancy
CPT/HCPCS: 36415; 85014; 85018; 85025; 86592; 86703; 86850; 86880; 86900; 86901; A9270; G0432; J2590; J2795; J3010; J7120

== ENCOUNTER 2024-05-28 13:19 | Outpatient (CLI) | payer OTHER, SELFPAY ==
[2024-05-28 13:46] VITALS: BP 121/69; PULSE 135
[2024-05-28 14:01] VITALS: BP 112/64; PULSE 69
[2024-05-28 14:16] VITALS: BP 120/70; PULSE 64
== END 2024-05-28 14:15 | disposition home or self-care (01) ==
LOC: ANHOBOP 13:23 → ANHOBPP 14:15
PROVIDERS: Visit Provider Obstetrics & Gynecology
DX: Z34.90 Encounter for supervision of normal pregnancy, unspecified, unspecified trimester (principal); Z3A.00 Weeks of gestation of pregnancy not specified
CPT/HCPCS: 99199